=== PATIENT | male | born 1955 | race Caucasian/White ===

== ENCOUNTER 2020-10-08 09:53 | Emergency (ER) | payer OTHER ==
[2020-10-08 10:18] VITALS: BP 142/92; PULSE 102; TEMP 99.9; BMI 34.0
[2020-10-08 10:54] LABS: EOS % 1.3 % (0-4.5); HEMATOCRIT 41.5 % (35.4-49); MCH 29.8 pg (25.7-33.7); MCHC 33.7 g/dl (32.0-35.9); MEAN CELL VOLUME 88.4 fl (80-96); MEAN PLT VOLUME 8.9 fl (7.5-11.1); MONO % 7.8 % (3.8-10.2); NEUT % 77.9 % (42.8-82.8); PLATELET COUNT 191 K/MM3 (134-434); RDW 11.9 % (11.9-15.9); WHITE BLOOD COUNT 8.3 K/mm3 (4.0-10.8)
[2020-10-08 10:58] LABS: ACTIVATED PTT 24.9 SECONDS (25.2-36.5)
[2020-10-08 11:00] LABS: ALBUMIN 4.3 g/dl (3.4-5.0); BILIRUBIN,TOTAL 1.2 mg/dl (0.2-1); CALCIUM 9.1 mg/dl (8.5-10); CREATININE 1.3 mg/dl (0.55-1.3); POTASSIUM 3.8 mmol/L (3.5-5.1); TOT PROT 6.8 g/dl (6.4-8.2)
[2020-10-08 11:02] LABS: INR 1.24 (0.82-1.09); PROTHROMBIN TIME (PATIENT) 13.7 SEC (10.2-13.0)
[2020-10-08] MEDS ORDERED: APIXABAN 5 MG TABLET PO ONE (12:15)
== END 2020-10-08 13:13 | disposition home or self-care (01) ==
LOC: FER 09:53
DX: I82.409 Acute embolism and thrombosis of unspecified deep veins of unspecified lower extremity (principal)
CPT/HCPCS: 36415; 80053; 85025; 85610; 85730; 93971-TC; 99284-25